=== PATIENT | female | born 1960 | race Caucasian/White ===

== ENCOUNTER → 2020-03-14 | Outpatient (CLI) | payer OTHER | END | disposition home or self-care (01) | LOC: LAB 12:28 | PROVIDERS: ATTEND Surgery | DX: Z01.818 Encounter for other preprocedural examination (principal); Z11.59 Encounter for screening for other viral diseases; D17.9 Benign lipomatous neoplasm, unspecified; Z88.5 Allergy status to narcotic agent | CPT/HCPCS: U0003-CS ==

== ENCOUNTER → 2020-03-18 | Day surgery (SDC) | payer OTHER ==
[~2020-03-18] MED LIST: LIDOCAINE 1%/EPI 1:100,000 20 ML VIAL. INJ ONE
[2020-03-18 07:53] VITALS: BP 128/70
--- NOTE | 2020-03-18 08:35 | PDOC4 ---
Operative Note Operative Note Date: March 18, 2020 at 08 32 Preoperative diagnosis: Left back mass, left abdominal mass Postoperative diagnosis: Same Procedure: Excision of masses Surgeon: Darren Specimen: Back mass, abdominal mass Dictation: Patient is 59-year-old female is complained of a mass on her left back and one on her left abdomen that palpable in the subcutaneous space approximately 2 cm each. Procedure of excision was explained to the patient detail was benefits were also discussed occluding bleeding infection alternatives to this procedure also discussed with the patient who seemed to understand and gave both verbal and written consent to have the procedure performed. Patient was taken to the minors room she was initially placed in the prone positioning the area of the back that the mass was on the left side was prepped and draped usual sterile fashion using ChloraPrep. 1% lidocaine with epinephrine was used to inject and anesthetized the skin once this was complete a 15 blade was used to incise the skin down to the mass which was removed appeared to be a lipoma was approximately 2 cm x 2 cm. The wound was then closed in a single layer running 4-0 subcuticular Monocryl. Mastisol Steri- Strips and island dressing were applied she was then turned to the supine position on her left abdomen a subcutaneous mass was prepped and draped in usual sterile fashion using ChloraPrep again 1% lidocaine with epinephrine was used anesthetize the area 15 blade scalpel was used to incise the skin and the mass was sharply excised and sent for pathology. Similar in size of 2 x 2 cm. The wound was then closed in a single layer 4-0 subcuticular Monocryl Mastisol Steri-Strips and island dressing were applied. Patient tolerated procedure well was discharged home in stable condition all sponge instrument needle counts listed as correct estimated blood loss 5 mL DEEVN YAÑEZ MD Mar 18, 2020 08:35
--- NOTE | 2020-03-18 08:36 | DISCH ---
DISCHARGE INSTRUCTIONS Condition on Discharge Condition on Discharge: Stable Activity After Discharge Activity Instructions for Disc: No restrictions Other activity instructions: May shower in 24 hours Diet after Discharge Diet after Discharge: Regular Wound Incision Care Other wound/incision instructi: May shower in 24 hours Contacting the after DC Call your doctor for: If your condition worsens Follow-Up Follow up with: Dr. Yañez in 2 weeks DEVEN YAÑEZ MD Mar 18, 2020 08:36
--- NOTE | 2020-03-21 18:06 | PATHOLOGY ---
[facility] Accession Number: [id number] . 01 Material submitted: . PART A: back - LEFT BACK MASS. Modifiers: left PART B: abdomen - LEFT ABDOMINAL MASS. Modifiers: left . 01 Clinical history: . Subcutaneous mass x2 . 02 Diagnosis: A. Segments of fibroadipose tissue, left back subcutaneous mass: - Lipoma. . B. Segments of fibroadipose tissue, left abdominal subcutaneous mass: - Lipoma. . (JPM:db; 03/21/2020) LBQ 03/21/2020 1732 Local . 02 Electronically signed: . Prosper Drew MD, Pathologist NPI- [id number] . 01 Gross description: . A. The specimen is received in formalin, labeled "Iris Mims, left back mass". Received are two segments of yellow-west lobulated tissue measuring 2.1 x 1.6 x 0.8 cm in aggregate dimensions. Sectioning reveals bright yellow cut surfaces with no grossly distinct nodules or lesions. The specimen is submitted representatively in cassette A1. . B. The specimen is received in formalin, labeled "Iris Mims, left abdominal mass". Received are two segments of yellow-west lobulated tissue measuring 3.2 x 2.2 x 1.4 cm in aggregate dimensions. Sectioning reveals bright yellow cut surfaces with no grossly distinct nodules or lesions. The specimen is submitted representatively in cassette B1. (CAA; 03/18/2020) QAC/QAC 03/18/2020 1835 Local . 02 Pathologist provided ICD-10: D17.1 . 02 CPT . 891567, 250329 Specimen Comment: A courtesy copy of this report has been sent to [phone] Specimen Comment: [id number] Specimen Comment: Report sent to / DR LU Performed at: [address] [facility] [address], [place], [place] [id number] MD Will Alvarado MD Phone: [phone] Performed at: 02 [facility] [place] [address] [place], [place] [id number] MD Prosper Drew MD Phone: [phone]
== END | disposition home or self-care (01) ==
LOC: SURG 07:00 → EDUNIT# 08:00
PROVIDERS: ATTEND Surgery
DX: M79.89 Other specified soft tissue disorders (principal); D17.1 Benign lipomatous neoplasm of skin and subcutaneous tissue of trunk; E78.5 Hyperlipidemia, unspecified; Z85.41 Personal history of malignant neoplasm of cervix uteri; Z79.899 Other long term (current) drug therapy; Z90.49 Acquired absence of other specified parts of digestive tract; Z90.710 Acquired absence of both cervix and uterus; Z87.891 Personal history of nicotine dependence; Z88.6 Allergy status to analgesic agent
CPT/HCPCS: 11402; 21930; 88304; J3490; 11404